=== PATIENT | female | born 1985 ===

== ENCOUNTER 2018-03-18 20:06 | Emergency (ER) | payer MEDICAID ==
[2018-03-18 20:06] VITALS: BMI 26.1
[2018-03-18] MEDS ORDERED: Sodium Chloride 0.9% 1,000 ML IV ONE (20:27)
--- NOTE | 2018-03-18 20:28 | C.PDOC ---
History Of Present Illness 32 year old female, 6 weeks , presents to the ED c/o nausea and vomiting. Patient denies fever, chills, diarrhea, back pain, vaginal bleeding, vaginal discharge, recent travel, sick contacts. Time Seen by Provider: 03/18/18 20:26 Chief Complaint (Nursing): Abdominal Pain History Per: Patient History/Exam Limitations: no limitations Onset/Duration Of Symptoms: Days Current Symptoms Are (Timing): Still Present Location Of Pain/Discomfort: Diffuse Quality Of Discomfort: "Pain" Associated Symptoms: Nausea, Vomiting. denies: Diarrhea, Urinary Symptoms Alleviating Factors: None Recent travel outside of the [place]: No Additional History Per: Patient Abnormal Vaginal Bleeding: No Last Menstral Period: 02/07/18 Past Medical History Reviewed: Historical Data, Nursing Documentation, Vital Signs Vital Signs: Last Vital Signs Temp 98.6 F 03/18/18 20:17 Pulse 78 03/18/18 20:17 Resp 20 03/18/18 20:17 BP 111/76 03/18/18 20:17 Pulse Ox 99 03/18/18 20:17 - Medical History PMH: Gastritis (diagnosed 20 years ago when living in the [place]) Surgical History: Endoscopy Family History: States: Unknown Family Hx - Social History Hx Alcohol Use: No Hx Substance Use: No Review Of Systems Constitutional: Negative for: Fever, Chills Cardiovascular: Negative for: Chest Pain Respiratory: Negative for: Shortness of Breath Gastrointestinal: Positive for: Nausea, Vomiting, Abdominal Pain. Negative for: Diarrhea Genitourinary: Negative for: Dysuria, Hematuria, Vaginal Discharge, Vaginal Bleeding Musculoskeletal: Negative for: Back Pain Skin: Negative for: Rash Neurological: Negative for: Weakness, Numbness Physical Exam - Physical Exam Appears: Non-toxic, No Acute Distress Skin: Warm, Dry Head: Normacephalic Eye(s): bilateral: Normal Inspection Oral Mucosa: Dry Neck: Supple Chest: Symmetrical Cardiovascular: Rhythm Regular Respiratory: No Rales, No Rhonchi, No Wheezing Gastrointestinal/Abdominal: Soft, No Tenderness, No Guarding, No Rebound Back: Normal Inspection Extremity: Bilateral: Atraumatic, Normal Color And Temperature, Normal ROM Neurological/Psych: Oriented x3, Normal Speech, Normal Cognition Gait: Steady ED Course And Treatment - Laboratory Results Result Diagrams: 03/18/18 21:11 03/18/18 21:11 O2 Sat by Pulse Oximetry: 99 (ON RA) Pulse Ox Interpretation: Normal Progress Note: Plan: - Labs. - IV fluids. - Zofran 4 mg IVP. - UA. Patient left before us reading was available. Understood the risks of doin so, including loss of and Disposition Counseled Patient/Family Regarding: Studies Performed, Diagnosis, Need For Followup, Rx Given - Disposition Referrals: Angel Jaimes MD [Medical Doctor] - Disposition: HOME/ ROUTINE Disposition Time: 20:27 Condition: FAIR Additional Instructions: Por favor regrese si los sntomas recurren. Tambin sigue con tu gineclogo / obstetra. Prescriptions: Metoclopramide [Reglan] 1 tab PO TID PRN #25 tab PRN Reason: Nausea/Vomiting Nitrofurantoin Macrocrystals [Macrobid] 1 cap PO BID #14 cap Instructions: Nausea and Vomiting of (DC), Urinary Tract Infection, Adult (DC) Forms: [employer] (Yi) Print Language: MAURITANIAN - Clinical Impression Clinical Impression: Hyperemesis gravidarum, UTI (urinary tract infection) during - Scribe Statement The provider has reviewed the documentation as recorded by the Scribe Bubba Chen All medical record entries made by the Scribe were at my direction and personally dictated by me. I have reviewed the chart and agree that the record accurately reflects my personal performance of the history, physical exam, medical decision making, and the department course for this patient. I have also personally directed, reviewed, and agree with the discharge instructions and disposition.
[2018-03-18 21:14] LABS: BASO # 0.1 K/uL (0.0-0.2); BASO % 0.8 % (0.0-2.0); EOS % 0.2 % (0.0-4.0); HEMOGLOBIN 12.6 g/dL (11.0-16.0); LYMPH # 1.8 K/uL (1.0-4.3); LYMPH % 16.5 % (20.0-40.0); MEAN CELL VOLUME 84.2 fL (81.0-99.0); MEAN CORPUSCULAR HEMOGLOBIN 28.2 pg (27.0-31.0); MEAN CORPUSCULAR HGB CONC 33.5 g/dL (33.0-37.0); MEAN PLATELET VOLUME 8.6 fL (7.2-11.7); MONO # 0.7 K/uL (0.0-0.8); MONO % 6.6 % (0.0-10.0); NEUT # 8.1 K/uL (1.8-7.0); NEUT % 75.9 % (50.0-75.0); RBC 4.48 Mil/uL (3.80-5.20); WHITE BLOOD COUNT 10.6 K/uL (4.8-10.8)
[2018-03-18 21:22] LABS: INR 1.1; PROTHROMBIN TIME 12.4 SECONDS (9.7-12.2)
[2018-03-18 21:26] LABS: ALB/GLOB RATIO 1.3 (1.0-2.1); ALBUMIN 4.8 g/dL (3.5-5.0); ALT/SGPT 50 U/L (9-52); AST/SGOT 41 U/L (14-36); BLOOD UREA NITROGEN 12 mg/dL (7-17); CALCIUM 9.5 mg/dl (8.6-10.4); GFR NON-AFRICAN AMERICAN > 60
[2018-03-18 22:07] LABS: SQUAMOUS EPITHIAL 11 /hpf (0-5); URINE BACTERIA MOD (<OCC); URINE BILIRUBIN NEGATIVE (NEGATIVE); URINE BLOOD 2+ (NEGATIVE); URINE CLARITY Hazy (Clear); URINE GLUCOSE (UA) NORMAL (Normal); URINE LEUKOCYTE ESTERASE TRACE Leu/uL (Negative); URINE PROTEIN 1+ mg/dL (NEGATIVE)
[2018-03-18 22:18] LABS: URINE COLOR YELLOW (YELLOW)
[2018-03-18 23:30] VITALS: BP 121/74; PULSE 81; RESP 18; TEMP 98.3
[2018-03-19 00:19] VITALS: O2SAT 99
--- NOTE | 2018-03-19 10:29 | US ---
Date of service: 03/18/2018 PROCEDURE: OB Pelvic Ultrasound HISTORY: Abdominal, back pain COMPARISON: None available. FINDINGS: UTERUS: Single Live intrauterine gestation. CRL measures 0.77 cm equivalent to 6 weeks and 5 days of gestational age. Gestational sac diameter measures 2.34 cm equivalent to 7 weeks and 0 day of gestational age. age (Ultrasound estimated): 6 weeks and 6 days Date of delivery (Ultrasound estimated) : 11/05/2018 Heart rate: 113 bpm. Clarita-gestational hemorrhage: There is a 1.3 x 0.3 x 0.6 cm subchorionic hemorrhage. Uterus measures 8.8 x 5.5 x 5.9 cm. Retroverted uterus. No mass CERVIX: Long and closed. No cervical abnormality seen. RIGHT OVARY: Measures 2.3 x 1.4 x 1.5 cm. No mass. Normal flow. LEFT OVARY: Measures 3.1 x 2.7 x 2.5 cm. No mass. Normal flow. There is a 1.8 x 1.9 x 1.5 cm corpus luteum cyst. FREE FLUID: There is small amount of free fluid in the cul de sac. OTHER FINDINGS: None. IMPRESSION: Single live intrauterine gestational sac with mean gestational age of 6 weeks and 6 days. The estimated date of delivery by ultrasound is 11/05/2018. Small subchorionic hemorrhage. A preliminary report was provided by [employer].
== END 2018-03-19 00:41 | disposition home or self-care (01) ==
LOC: C.ER 20:06
DX: O21.0 Mild hyperemesis gravidarum (principal); O23.41 Unspecified infection of urinary tract in pregnancy, first trimester; Z3A.01 Less than 8 weeks gestation of pregnancy
CPT/HCPCS: 76817; 80053; 81001; 84702; 85025; 85610; 85730; 86850; 86900; 96361; 96374; 96375; 99285; J2405; J2765; J7030